=== PATIENT | female | born 2000 | race Caucasian/White ===

== ENCOUNTER 2022-07-25 01:23 | Emergency (ER) | payer OTHER ==
[2022-07-25] MEDS ORDERED: methylPREDNISolone Sodium Succinate 125 MG/2 ML SDV IM ONE (01:55)
[2022-07-25] MEDS ORDERED: diphenhydrAMINE 50 MG/ML SDV IM ONE (01:56)
== END 2022-07-25 02:26 | disposition home or self-care (01) ==
LOC: JD.ED 01:23
DX: L29.9 Pruritus, unspecified (principal); R21 Rash and other nonspecific skin eruption
CPT/HCPCS: 96372; 99282; J1200; J2930; 99283